=== PATIENT | female | born 1990 | race Hispanic/Latino ===

== ENCOUNTER 2023-07-19 19:28 | Emergency (ER) | payer SELFPAY ==
[~2023-07-19 19:28] MED LIST: Iopamidol 300 61% 100 ML VIAL FS ONE
[2023-07-19] MEDS ORDERED: Ondansetron PF 4 MG/2 ML Vial ONE (19:51)
[2023-07-19] MEDS ORDERED: fentaNYL 50 mcg/mL 1 mL Vial ONE (19:51)
[2023-07-19] MEDS ORDERED: Ketorolac Tromethamine 30 MG (1 mL) VIAL ONE (19:51)
[2023-07-19 20:08] LABS: #Basophils 0.03 10x3/uL (0.0-0.2); #Eosinphils 0.07 10x3/uL (0.0-0.5); #Monocytes 1.01 10x3/uL (0.0-1.1); #Neutrophils 13.74 10x3/uL (1.5-8.4); %Basophils 0.2 % (0.0-2.0); %Eosinophils 0.4 % (0.0-6.0); %Monocytes 5.6 % (0.0-10.0); %Neutrophils 76.3 % (40.0-75.0); Hematocrit 38.4 % (34.9-44.5); Hemoglobin 11.8 g/dL (12.0-15.5); Mean Corpuscular HGB CONC 30.7 g/dL (32.0-36.0); Mean Corpuscular Hemoglobin 23.1 pg (27.0-33.0); Mean Corpuscular Volume 75.3 fl (81.6-98.3); Mean Platelet Volume 10.6 fl (7.4-10.4); Platelet Count 276 10x3/uL (150-450)
[2023-07-19 20:14] LABS: BHCG - Serum Negative (NEGATIVE); Pregs Control Background? CLEAR/WHITE (CLR/WHITE); Pregs Control Bar Appear? YES (CONTROL BAR)
[2023-07-19 20:17] LABS: ALT (SGPT) 22 U/L (8-55); AST (SGOT) 15 U/L (5-34); Albumin 3.1 g/dL (3.5-5.0); Alkaline Phosphatase 75 U/L (40-110); Anion Gap 13 mmol/L (10-20); BUN (Urea Nitrogen) 19 mg/dL (7.0-18.7); Bilirubin, Total 0.3 mg/dL (0.2-1.2); Calc. Creatinine Clearance 0 mL/min (70-130); Calcium 8.5 mg/dL (7.8-10.44); Carbon Dioxide 27 mmol/L (22-29); Chloride 104 mmol/L (98-107); Estimated GFR 101; Globulin 3.8 g/dL (2.4-3.5); Glucose 100 mg/dL (70-105); Lipase 22 U/L (8-78); Potassium 3.4 mmol/L (3.5-5.1); Protein, Total 6.9 g/dL (6.0-8.3); Sodium 141 mmol/L (136-145)
[2023-07-19 21:18] LABS: Bilirubin Neg (Negative); Blood, Urine 250 (Negative); Clarity Clear (Clear); Glucose, Urine (Dipstick) Normal (Negative); Ketone, Urine Negative (Negative); Leukocyte 25 (Negative); Nitrite Negative (Negative); Protein, Urine (Dipstick) Negative (Neg-Trace); Specific Gravity, Urine 1.015 (1.005-1.030); Urobilinogen Normal mg/dL (Less than 2)
[2023-07-19 21:32] LABS: Bacteria/HPF 1+ HPF (None Seen); CAUTI Indications for Culture Pelvic or flank pain; RBC/HPF 0-3 HPF (0-3); Squamous Epithelial 0-3 HPF (0-3); Urine Culture Reflex No No; WBC/HPF 0-3 HPF (0-3)
== END 2023-07-19 22:28 | disposition home or self-care (01) ==
LOC: CSHERS 19:28
DX: M54.50 Low back pain, unspecified (principal); N94.6 Dysmenorrhea, unspecified; D72.829 Elevated white blood cell count, unspecified
CPT/HCPCS: 74177; 80053; 81001; 83690; 84703; 85025; 87086; 96374; 96375; J1885; J2405; J3010